=== PATIENT | female | born 1975 | race African-American/Black ===

== ENCOUNTER 2017-01-08 13:49 | Emergency (ER) | payer OTHER ==
--- NOTE | 2017-01-08 15:20 | Diag Imaging Result Document ---
PROCEDURE NAME: KNEE 3 VIEWS RIGHT - 01/08/2017 RIGHT KNEE, THREE VIEWS: FINDINGS: No fracture. No dislocation. Minimal medial joint space narrowing with tiny bone spur to the medial femoral condyle. IMPRESSION: 1. Minimal early arthritic changes. 2. No fracture.
[2017-01-08] MEDS ORDERED: TORADOL IM ONE (16:02)
--- NOTE | 2017-01-08 16:12 | PROVIDER DOCUMENTATION ---
HPI-Musculoskeletal Pain/Inj - GENERAL Chief Complaint: Extremity Pain Stated Complaint: EXTREMITY PAIN Time Seen by Provider: 01/08/17 15:07 Source: patient - HX OF PRESENT ILLNESS-MUSKULOSKELTAL Nature of Presenting Problem: Pt is a 41 yof who came to the ED with a cc of right knee pain. Pt reports her knee pain started 3 days ago and it is a 10/10. Pt reports her knee only bothers her when she walks on it. Pt says the pain goes to her thigh and calf. Quality of Pain: reports: sharp, tightness Severity in ED: mild Onset/Duration: 3 days ago Timing: still present Modifying Factors: improves with: movement Any recent injury?: No Similar Symptoms Previously?: No Recently seen or treated by another doctor?: No - FALL INJURY Location of Pain/Injury: reports: none Review of Systems - Adult - REVIEW OF SYSTEMS - ADULT Constitutional: denies: chills, fever Eyes: denies: decreased vision, double vision Ears, Nose, Mouth & Throat: reports: no symptoms reported Cardiovascular: denies: chest pain, irregular heart rate Respiratory: reports: no symptoms reported Gastrointestinal: reports: no symptoms reported Genitourinary: reports: no symptoms reported Musculoskeletal: reports: other (right knee/thigh/calf pain). denies: frequent leg cramps, joint swelling Integumentary: reports: no symptoms reported Neurological: reports: no symptoms reported Psychiatric: reports: no symptoms reported Endocrine: reports: no symptoms reported Hematologic/Lymphatic: reports: no symptoms reported Allergic/Immunologic: reports: no symptoms reported All Other Systems: Reviewed and Negative Past History - Adult - PAST MEDICAL HISTORY-ADULT Review of Records: reports: Old Records Reviewed, Nursing Assessment Review Major Childhood Illnesses: reports: denies history Cardiovascular: reports: HTN Respiratory: reports: denies history Gastrointestinal: reports: denies history Obstetrical/Gynecological: reports: denies history Genitourinary: reports: denies history Musculoskeletal: reports: denies history Neurological: reports: denies history Endocrine/Immune: reports: Diabetes Other Conditions: reports: denies history - PRIOR SURGERIES/PROCEDURES Surgical/Procedure History: reports: cholecystectomy, hernia repair - IMMUNIZATION STATUS Childhood Immunizations: See Nurse Assessment Flu Vaccine: See Nurse Assessment - FAMILY HISTORY Family History: reviewed, not pertinent Physical Exam-Injury Related - Physical Exam-Injury Related Initial Vital Signs Reviewed: Yes General Appearance: appears well, alert, no apparent distress Eyes: PERRL/EOMI, pink conjunctivae Head, Ears, Nose, Mouth & Throat: normocephalic/atraumatic, moist mucous membranes Neck: non-tender, full range of motion Respiratory: chest non-tender, lungs clear, normal breath sounds Cardiovascular: normal peripheral pulses, regular rate, rhythm Abdominal Exam: normal bowel sounds, non tender Back Exam: normal inspection Extremity: normal range of motion, tenderness (right knee/thigh/calf) Integumentary: warm/dry Neurologic: grossly normal Psych/Mental Status: normal mood/affect, normal thought content, normal thought process, oriented x 3 Progress - PLAN OF CARE/RESULTS Progress/Plan/Lab Results: Vital Signs - 24 hr 01/08/17 13:53 Temperature 98.4 F Pulse Rate 86 Respiratory 16 Rate Blood Pressure 132/99 O2 Sat by Pulse 99 Oximetry Orders Category Date Time Status KNEE 3 VIEWS RIGHT [RAD] Stat Exams 01/08/17 13:57 Draft Ketorolac [Toradol] Med 01/08/17 16:02 Discontinued 60 mg IM NOW ONE US [Venous U/S Right Leg] [CV] Stat Ther 01/08/17 16:01 Ordered - ULTRASOUND (By Radiology) 1 US Results: negative for PVT Departure - Departure Time of Disposition Order: 17:39 DIAGNOSIS: Right knee pain Qualifiers: Chronicity: unspecified Qualified Code(s): M25.561 - Pain in right knee Disposition: HOME 01 Certified Medical Emergency: Emergent Condition: Stable Attestation - Scribe Verification/Attestation Scribe:: Regina Sutton Acting as Scribe for:: Alize Staley Scribe documention review:: This chart was documented by a scribe and accurately reflects the service the provider performed and the decisions made by the provider.
[2017-01-08 17:54] VITALS: BP 123/82
--- NOTE | 2017-01-09 07:12 | Extremity Venous Study ---
PROCEDURE NAME: Venous U/S Right Leg - 01/08/2017 STUDY: Right lower extremity venous Doppler ultrasound. There is good flow and compressibility of the veins of the right lower extremity. No thrombus. Normal augmentation. IMPRESSION: No evidence of deep venous thrombosis within the right lower extremity.
== END 2017-01-08 17:58 | disposition home or self-care (01) ==
LOC: P.ED 13:49
DX: M25.561 Pain in right knee (principal); M79.651 Pain in right thigh; M79.661 Pain in right lower leg; I10 Essential (primary) hypertension; E11.9 Type 2 diabetes mellitus without complications; Z79.899 Other long term (current) drug therapy
CPT/HCPCS: 93971; 96372; J1885